=== PATIENT | female | born 1995 | race Caucasian/White ===

== ENCOUNTER 2022-11-13 20:58 | Inpatient (IN) | payer BC ==
[~2022-11-13] VITALS: Ht 167.6 cm; Wt 95.5 kg
[2022-11-13 21:50] VITALS: BP 120/69
[2022-11-13 22:04] LABS: BASOPHILS ABSOLUTE AUTO 0.03 K/mm3 (0.00-0.23); BASOPHILS PERCENT AUTO 0 % (0-2); EOSINOPHILS ABSOLUTE AUTO 0.16 K/mm3 (0.00-0.68); EOSINOPHILS PERCENT AUTO 1 % (0-6); Hematocrit 30.9 % (33.0-51.0); Hemoglobin 10.2 g/dL (11.5-16.0); IMMATURE GRAN ABSOLUTE AUTO 0.08 K/mm3 (0.00-0.10); IMMATURE GRAN PERCENT AUTO 1 % (0-1); LYMPHOCYTES ABSOLUTE AUTO 1.71 K/mm3 (0.84-5.20); LYMPHOCYTES PERCENT AUTO 15 % (21-46); MONOCYTES ABSOLUTE AUTO 0.66 K/mm3 (0.16-1.47); MONOCYTES PERCENT AUTO 6 % (4-13); Mean Corpuscular HGB 27.4 pg (26.0-34.0); Mean Corpuscular Volume 83 fL (80-100); Mean Platelet Volume 10.5 fL (9.1-12.4); NEUTROPHILS ABSOLUTE AUTO 8.85 K/mm3 (1.96-9.15); NEUTROPHILS PERCENT AUTO 77 % (41-73); Platelet Count 185 K/mm3 (150-400); RDW Coefficient Variation 12.9 % (11.7-14.2); RDW Standard Deviation 39.3 fL (35.1-46.3); Red Blood Cell Count 3.72 M/mm3 (3.80-5.20); White Blood Cell Count 11.49 K/mm3 (4.00-11.30)
[2022-11-13] MEDS ORDERED: PRENATAL TABLE1 EAC2 PO (22:19)
[2022-11-13 23:28] VITALS: BP 114/61
[2022-11-14] VITALS (63 sets, daily range): BP systolic 73–129; BP diastolic 40–70
[2022-11-15 06:24] VITALS: BP 118/56
[2022-11-15 06:42] LABS: Hematocrit 29.9 % (33.0-51.0); Hemoglobin 9.9 g/dL (11.5-16.0); Mean Corpuscular HGB 27.7 pg (26.0-34.0); Mean Corpuscular HGB Conc 33.1 g/dL (31.5-36.5); Mean Corpuscular Volume 84 fL (80-100); Mean Platelet Volume 10.3 fL (9.1-12.4); Platelet Count 153 K/mm3 (150-400); RDW Coefficient Variation 13.2 % (11.7-14.2); RDW Standard Deviation 40.7 fL (35.1-46.3); Red Blood Cell Count 3.57 M/mm3 (3.80-5.20); White Blood Cell Count 13.14 K/mm3 (4.00-11.30)
[2022-11-15] MEDS ORDERED: DOCU100 PO (07:12)
[2022-11-15] MEDS ORDERED: IBUP800 PO (07:12)
[2022-11-15 07:57] VITALS: BP 105/55
--- NOTE | 2022-11-15 12:21 | NUR ---
DC INSTRUCTIONS GIVEN. VERBALIZE UNDERSTANDING AND QUESTIONS ANSWERED. WILL FOLLOW UP WITH [facility] OFFICE SCHEDULED OR CALL IF ANY PROBLEMS OR CONCERNS ARISE. WILL F/U HERE AT [facility] ACCORDING TO TSB RESULTS FROM .
== END 2022-11-15 12:50 | disposition home or self-care (01) | DRG 807 ==
LOC: OBS 20:58 → BC 21:02 → OBS 21:34 → BC 21:37
PROVIDERS: ADMIT Nurse Practitioner Obstetrics & Gynecology
PROC: 10E0XZZ Delivery of Products of Conception, External Approach (ICD-10-PCS; principal; 2022-11-14)
PROC: 3E0R3BZ Introduction of Anesthetic Agent into Spinal Canal, Percutaneous Approach (ICD-10-PCS; 2022-11-14)
PROC: 00HU33Z Insertion of Infusion Device into Spinal Canal, Percutaneous Approach (ICD-10-PCS; 2022-11-14)
DX: O42.02 Full-term premature rupture of membranes, onset of labor within 24 hours of rupture (principal); Z37.0 Single live birth; O77.0 Labor and delivery complicated by meconium in amniotic fluid; Z3A.39 39 weeks gestation of pregnancy
CPT/HCPCS: 36415; 51702; 59025; 85025; 85027; 86850; 86900; 86901; A9270; J1885; J2210; J2590; J7120